=== PATIENT | male | born 1980 | race Caucasian/White ===

== ENCOUNTER 2019-05-04 18:22 | Emergency (ER) | payer MEDICARE, OTHER ==
[~2019-05-04] VITALS: Ht 177.8 cm; Wt 72.7 kg
[2019-05-04] MEDS ORDERED: ONDANSETRON PF 4 MG/2 ML VIAL. IV ONE (20:30)
[2019-05-04] MEDS ORDERED: MORPHINE SULFATE 4 MG/ML VIAL. IV ONE (20:30)
[2019-05-04] MEDS ORDERED: IV NORMAL SALINE 1000ML BAG 1,000 ML IV ONE (20:30)
[2019-05-04 20:37] LABS: FECAL OB PT POSITIVE (NEG)
[2019-05-04 20:39] LABS: BASO # 0.1 x10^3/uL (0.0-0.2); BASO % 1 % (0-3); EOS # 0.2 x10^3/uL (0.0-0.7); EOS % 3 % (0-3); HEMATOCRIT 42.8 % (39.0-53.0); HEMOGLOBIN 14.1 g/dL (13.0-17.5); LYMPH % 29 % (24-48); MEAN CORPUSCULAR HEMOGLOBIN 28 pg (25-35); MEAN CORPUSCULAR HGB CONC 33 g/dL (31-37); MEAN CORPUSCULAR VOLUME 84 fL (79-100); MONO # 0.4 x10^3/uL (0.0-1.1); MONO % 6 % (0-9); NEUT # 4.1 x10^3/uL (1.8-7.7); NEUT % 61 % (31-73); PLATELET COUNT 193 x10^3/uL (140-400); RED BLOOD COUNT 5.07 x10^6/uL (4.30-5.70); RED CELL DISTRIBUTION WIDTH 13.4 % (11.5-14.5); WHITE BLOOD COUNT 6.7 x10^3/uL (4.0-11.0)
[2019-05-04 20:41] LABS: CALCIUM 8.9 mg/dL (8.5-10.1); CREATININE 1.3 mg/dL (0.7-1.3); GFR 61.5; POTASSIUM 3.9 mmol/L (3.5-5.1)
[2019-05-04 20:50] LABS: PROTHROMBIN TIME PATIENT 14.1 SEC (11.7-14.0)
[2019-05-04 20:55] LABS: ALBUMIN 4.2 g/dL (3.4-5.0); ALBUMIN/GLOBULIN RATIO 1.6 (1.0-1.7); TOTAL BILIRUBIN 0.7 mg/dL (0.2-1.0); TOTAL PROTEIN 6.8 g/dL (6.4-8.2)
[2019-05-04] MEDS ORDERED: IOHEXOL 300 MG/ML 100ML VIAL. IV ONE (21:00)
[2019-05-04] MEDS ORDERED: CONTRAST GIVEN. MC PRN (21:00)
--- NOTE | 2019-05-04 21:29 | RAD ---
Exam: CT of abdomen and pelvis with contrast INDICATION: Lower abdominal pain TECHNIQUE: Sequential axial images through the abdomen and pelvis obtained following the administration of 75 mL of Omni 300 IV contrast. Sagittal and coronal reformatted images were reconstructed from the axial data and reviewed. Comparisons: None FINDINGS: Heart size is normal. No pericardial effusion. Visualized lung bases are clear. No pleural effusion. Liver, spleen, pancreas, gallbladder and adrenals are unremarkable. Kidneys a straight symmetric enhancement. No perinephric inflammation or hydronephrosis. No renal or ureteral calculi are identified. Bladder is partially distended and appears thin-walled. Uterus is not enlarged. The rectum and sigmoid colon are distended with hyperdense internal contents. Remainder of the large and small bowel are unremarkable. Appendix is normal. No free abdominal air or fluid. No obstruction. Abdominal aorta has a normal course and caliber. Abdominal vasculature is patent. No enlarged intra-abdominal lymph nodes are identified. No suspicious osseous lesions or acute fractures. IMPRESSION: Rectum and sigmoid colon are distended with hyperdense internal contents, may represent hemorrhagic products. Exposure: One or more of the following in the visualized dose reduction techniques were utilized for this examination: 1. Automated exposure control 2. Adjustment of the MA and/or KV according to patient size 3. Use of iterative of reconstructive technique Electronically signed by: Ashly Zapata MD (05/04/2019 9:27 PM) [id number]
--- NOTE | 2019-05-04 21:50 | PHYS DOC ---
Past Medical History Past Medical History: Anxiety, Constipation, GERD Additional Past Medical Histor: ibs,hep a as child, (LENNY LOOMIS APRN) Past Surgical History: No Surgical History (LENNY LOOMIS APRN) Smoking Status: Current Every Day Smoker Alcohol Use: None (LENNY LOOMIS APRN) Attending Signature I have participated in the care of this patient and I have reviewed and agree with all pertinent clinical information above including history, exam, and recommendations. (KATIE CLEMONS MD) Adult General Chief Complaint Chief Complaint: RECTAL BLEED HPI HPI Patient is a 39 year old male, accompanied by his brother, who presents to the emergency department with complaints of bright red rectal bleeding for the last 2 days. Patient states about a week ago he began having problems with constipation. 2 days ago he injected some preparation H into his anus to help with the hemorrhoid pain he was having. Pt denies any pain or difficulty with medication injection. At this time he complains of some lower abdominal pain and reports that he feels dizzy and light headed. PT denies any shortness of breath, chest pain, syncope, diarrhea, nausea, or vomiting. He denies any black or tarry stools. He currently rates his discomfort a 4/10 on the pain scale, he denies any alleviating factors. (LENNY LOOMIS APRN) Review of Systems Review of Systems All other ROS is negative unless otherwise noted in HPI. (LENNY LOOMIS APRN) Current Medications Current Medications Current Medications Medications (Trade) Dose Ordered Sig/Clementina Start Time Stop Time Status Last Admin Dose Admin Info (CONTRAST GIVEN -- Rx MONITORING) 1 each PRN DAILY PRN 05/04/19 21:00 05/04/19 23:10 DC Iohexol (Omnipaque 300 Mg/ml) 75 ml 1X ONCE 05/04/19 21:00 05/04/19 21:01 DC 05/04/19 21:11 75 ML Morphine Sulfate (Morphine Sulfate) 4 mg 1X ONCE 05/04/19 20:30 05/04/19 20:31 DC 05/04/19 20:40 4 MG Ondansetron HCl (Zofran) 4 mg 1X ONCE 05/04/19 20:30 05/04/19 20:31 DC 05/04/19 20:39 4 MG Sodium Chloride 1,000 ml @ 1,000 mls/hr 1X ONCE 05/04/19 20:30 05/04/19 21:29 DC 05/04/19 20:39 1,000 MLS/HR (KATIE CLEMONS MD) Allergies Allergies Allergies Coded Allergies Type Severity Reaction Last Updated Verified No Known Drug Allergies 05/04/19 No (KATIE CLEMONS MD) Physical Exam Physical Exam See Above Constitutional: Well developed, well nourished, no acute distress, non-toxic appearance. [] HENT: Normocephalic, atraumatic, bilateral external ears normal, oropharynx moist, no oral exudates, nose normal. [] Eyes: PERRLA, EOMI, conjunctiva normal, no discharge. [] Neck: Normal range of motion, no stridor. [] Cardiovascular:Heart rate regular rhythm, no murmur [] Lungs & Thorax: Bilateral breath sounds clear to auscultation, Respirations even and unlabored, no retractions, no respiratory distress [] Abdomen: Bowel sounds normal, soft, no rebound tenderness, RLQ and LLQ TTP, no masses, no pulsatile masses. [] Rectal Exam: Normal tone, thrombosed hemmorhoid measuring 2 cm x 1 cm noted at 9 o'clock, Positive control Stool: Brown Guaiac: positive, gross blood on exam from hemorrhoid Skin: pale. Warm, dry, no erythema, no rash. [] Back: No tenderness Extremities: No cyanosis, ROM intact Neurologic: Alert and oriented X 3, no focal deficits noted. [] Psychologic: Affect normal, judgement normal, mood normal. [] (LENNY LOOMIS APRN) Current Patient Data Vital Signs Vital Signs Date Time Temp Pulse Resp B/P (MAP) Pulse Ox O2 Delivery O2 Flow Rate FiO2 05/04/19 23:08 98.3 84 16 112/84 (93) 98 Room Air 98.3 (KATIE CLEMONS MD) Lab Values Laboratory Tests Test 05/04/19 20:15 05/04/19 20:30 05/04/19 22:17 White Blood Count 6.7 x10^3/uL (4.0-11.0) Red Blood Count 5.07 x10^6/uL (4.30-5.70) Hemoglobin 14.1 g/dL (13.0-17.5) Hematocrit 42.8 % (39.0-53.0) Mean Corpuscular Volume 84 fL (79-100) Mean Corpuscular Hemoglobin 28 pg (25-35) Mean Corpuscular Hemoglobin Concent 33 g/dL (31-37) Red Cell Distribution Width 13.4 % (11.5-14.5) Platelet Count 193 x10^3/uL (140-400) Neutrophils (%) (Auto) 61 % (31-73) Lymphocytes (%) (Auto) 29 % (24-48) Monocytes (%) (Auto) 6 % (0-9) Eosinophils (%) (Auto) 3 % (0-3) Basophils (%) (Auto) 1 % (0-3) Neutrophils # (Auto) 4.1 x10^3/uL (1.8-7.7) Lymphocytes # (Auto) 2.0 x10^3/uL (1.0-4.8) Monocytes # (Auto) 0.4 x10^3/uL (0.0-1.1) Eosinophils # (Auto) 0.2 x10^3/uL (0.0-0.7) Basophils # (Auto) 0.1 x10^3/uL (0.0-0.2) Prothrombin Time 14.1 SEC (11.7-14.0) H Prothrombin Time INR 1.1 (0.8-1.1) Activated Partial Thromboplast Time 28 SEC (24-38) Sodium Level 141 mmol/L (136-145) Potassium Level 3.9 mmol/L (3.5-5.1) Chloride Level 104 mmol/L (98-107) Carbon Dioxide Level 29 mmol/L (21-32) Anion Gap 8 (6-14) Blood Urea Nitrogen 12 mg/dL (8-26) Creatinine 1.3 mg/dL (0.7-1.3) Estimated GFR (Cockcroft-Gault) 61.5 BUN/Creatinine Ratio 9 (6-20) Glucose Level 84 mg/dL (70-99) Calcium Level 8.9 mg/dL (8.5-10.1) Total Bilirubin 0.7 mg/dL (0.2-1.0) Aspartate Amino Transferase (AST) 15 U/L (15-37) Alanine Aminotransferase (ALT) 15 U/L (16-63) L Alkaline Phosphatase 46 U/L (46-116) Total Protein 6.8 g/dL (6.4-8.2) Albumin 4.2 g/dL (3.4-5.0) Albumin/Globulin Ratio 1.6 (1.0-1.7) Stool Occult Blood Positive (NEG) Urine Collection Type Unknown Urine Color Yellow Urine Clarity Cloudy Urine pH 5.5 Urine Specific [place] >=1.030 Urine Protein Negative mg/dL (NEG-TRACE) Urine Glucose (UA) Negative mg/dL (NEG) Urine Ketones (Stick) Trace mg/dL (NEG) Urine Blood Negative (NEG) Urine Nitrite Negative (NEG) Urine Bilirubin Negative (NEG) Urine Urobilinogen Dipstick 0.2 mg/dL (0.2 mg/dL) Urine Leukocyte Esterase Negative (NEG) Urine RBC 0 /HPF (0-2) Urine WBC 0 /HPF (0-4) Urine Squamous Epithelial Cells Occ /LPF Urine Bacteria 0 /HPF (0-FEW) Urine Mucus Slight /LPF Laboratory Tests 05/04/19 20:15 Laboratory Tests 05/04/19 20:15 (KATIE CLEMONS MD) EKG EKG [] (LENNY LOOMIS APRN) Radiology/Procedures Radiology/Procedures PROCEDURE: CT ABD PELV W/ IV CONTRST ONLY Exam: CT of abdomen and pelvis with contrast INDICATION: Lower abdominal pain TECHNIQUE: Sequential axial images through the abdomen and pelvis obtained following the administration of 75 mL of Omni 300 IV contrast. Sagittal and coronal reformatted images were reconstructed from the axial data and reviewed. Comparisons: None FINDINGS: Heart size is normal. No pericardial effusion. Visualized lung bases are clear. No pleural effusion. Liver, spleen, pancreas, gallbladder and adrenals are unremarkable. Kidneys a straight symmetric enhancement. No perinephric inflammation or hydronephrosis. No renal or ureteral calculi are identified. Bladder is partially distended and appears thin-walled. Uterus is not enlarged. The rectum and sigmoid colon are distended with hyperdense internal contents. Remainder of the large and small bowel are unremarkable. Appendix is normal. No free abdominal air or fluid. No obstruction. Abdominal aorta has a normal course and caliber. Abdominal vasculature is patent. No enlarged intra-abdominal lymph nodes are identified. No suspicious osseous lesions or acute fractures. IMPRESSION: Rectum and sigmoid colon are distended with hyperdense internal contents, may represent hemorrhagic products. Exposure: One or more of the following in the visualized dose reduction techniques were utilized for this examination: 1. Automated exposure control 2. Adjustment of the MA and/or KV according to patient size 3. Use of iterative of reconstructive technique Electronically signed by: Ashly Zapata MD (05/04/2019 9:27 PM) [id number] [] (LENNY LOOMIS APRN) Course & Med Decision Making Course & Med Decision Making Pertinent Labs and Imaging studies reviewed. (See chart for details) 39-year-old male who presented to the emergency room with complaints of bleeding and hemorrhoid for the last 2 days. Vital signs are stable. CT abdomen and pelvis revealed no acute findings. CBC was within normal limits, no anemia, CMP also unremarkable, UA unremarkable. Prescribed the patient some Anusol HC suppositories. Recommend that he take one capful of MiraLAX in 8 ounces of water twice a day. Sitz baths as 3 times a day to help ease hemorrhoid discomfort. Fo llow-up with your primary care doctor in 1-2 days. Return to the ER symptoms worsen. [] (LENNY LOOMIS APRN) Dragon Disclaimer Dragon Disclaimer This electronic medical record was generated, in whole or in part, using a voice recognition dictation system. (LENNY LOOMIS APRN) Departure Departure Impression: Primary Impression: Bleeding hemorrhoid Additional Impression: External hemorrhoid, thrombosed Disposition: 01 HOME, SELF-CARE Condition: STABLE Referrals: NAA DE LA TORRE MD (PCP) Patient Instructions: Hemorrhoids, [id number] Additional Instructions: Fill the prescription and use as directed. Increase clear fluids. Recommend that you take a capful of MiraLAX twice daily in 8 ounces of water until your stools are soft. Follow up with your primary care doctor in 1-2 days. Return to the ER if symptoms worsen. Scripts Hydrocortisone Acetate (ANUSOL-HC) 25 Mg Supp.rect 1 SUPP RC BID PRN for RECTAL PAIN for 14 Days, #28 SUPP 0 Refills Prov: LENNY LOOMIS APRN 05/04/19 Problem Qualifiers LENNY LOOMIS APRN May 04, 2019 21:50 KATIE CLEMONS MD May 05, 2019 03:12
[2019-05-04 22:25] LABS: BILIRUBIN,URINE NEGATIVE (NEG); CLARITY,URINE CLOUDY; COLOR,URINE YELLOW; NITRITE,URINE NEGATIVE (NEG); PH,URINE 5.5; PROTEIN,URINE NEGATIVE (NEG-TRACE); UROBILINOGEN,URINE 0.2 mg/dL (0.2 mg/dL)
[2019-05-04 22:30] LABS: BACTERIA,URINE 0 /HPF (0-FEW); RBC,URINE 0 /HPF (0-2); SQUAMOUS EPITHELIAL CELL,UR OCC /LPF; WBC,URINE 0 /HPF (0-4)
[2019-05-04] MEDS ORDERED: HYDR25SU18 RC (22:39)
[2019-05-04 23:08] VITALS: BP 112/84
== END 2019-05-04 22:55 | disposition home or self-care (01) ==
LOC: ER 18:22
DX: K64.5 Perianal venous thrombosis (principal); R42 Dizziness and giddiness; K21.9 Gastro-esophageal reflux disease without esophagitis; F17.200 Nicotine dependence, unspecified, uncomplicated
CPT/HCPCS: 36415; 74177; 80053; 81001; 82274; 85025; 85610; 85730; 96361; 96374; 96375; 99285; J2270; J2405; J7030; Q9967